=== PATIENT | female | born 1955 | race African-American/Black ===

== ENCOUNTER 2020-03-10 17:48 | Emergency (ER) | payer SELFPAY ==
[~2020-03-10] VITALS: Ht 167.6 cm; Wt 129.7 kg
--- NOTE | 2020-03-10 18:00 | NUR ---
ED Nurse Note: Pt ambulated to ED from home d/t shortness or breath and wheezing going on for couple of days. Pt is AOx4, calm and cooperative to care, breathing unlabored, VSS, satting at 94% on RA, afebrile on triage. Will continue to monitor.
--- NOTE | 2020-03-10 18:22 | Emergency Room Report ---
History of Present Illness General Chief Complaint: Dyspnea/Respdistress Source: Patient (Tali Evans) Present Illness HPI 64-year-old female with history of hypertension currently not taking medication and no other past medical history here complaining of sudden onset of 1 day of chest tightness, shortness of breath and wheezing. Reports that she believes that it might be an allergic reaction to some product she was using at home. Also patient has history of eczema reports that eczema has exacerbated since yesterday. Denies anaphylaxis, difficulty swallowing. Patient still speaks in full sentences. Denies chest pain radiation, pleuritic chest pain, abdominal pain, nausea vomiting, headache and dizziness. Has not taken medication for symptom relief. Denies tobacco smoke, drug use, alcohol intake. Reports that she gets more short of breath when walking. Reports that shortness of breath is also worse when laying down and had to sit up and lean forward. Patient appears to have elevated blood pressure, oxygenation upon arrival. Patient is not in any respiratory distress and does not use any accessory muscles. Denies unilateral generalized weakness. (Tali Evans) Allergies: Coded Allergies: PENICILLINS (Verified Allergy, Unknown, 03/10/20) COVID-19 Screening Contact w/high risk pt: No Experienced COVID-19 symptoms?: Yes COVID-19 Testing performed SPECIAL NEEDS BABYSITTER: No (Tali Evans) Patient History Past Medical History: see triage record Past Surgical History: none Pertinent Family History: none Now: No Immunizations: UTD Reviewed Nursing Documentation: PMH: Agreed; PSxH: Agreed (Tali Evans) Nursing Documentation-PMH Past Medical History: No Stated History Hx Hypertension: Yes (Tali Evans) Review of Systems All Other Systems: negative except mentioned in HPI (Tali Evans) Physical Exam Vital Signs Date Time Temp Pulse Resp B/P (MAP) Pulse Ox O2 Delivery O2 Flow Rate FiO2 03/10/20 17:52 97.5 91 20 221/107 (145) 94 Room Air Sp02 EP Interpretation: abnormal - Elevated blood pressure, O2 sat 94% General Appearance: alert, non-toxic, mild distress Head: normocephalic, atraumatic Eyes: bilateral eye normal inspection, bilateral eye PERRL ENT: hearing grossly normal, normal pharynx, no angioedema, normal voice Neck: full range of motion, supple/symm/no masses Respiratory: no rhonchi, no retraction, no accessory muscle use, wheezing - Diffuse wheezing Cardiovascular #1: regular rate, rhythm, no edema, no murmur Cardiovascular #2: 2+ carotid (R), 2+ carotid (L), 2+ radial (R), 2+ radial (L), 2+ dorsalis pedis (R), 2+ dorsalis pedis (L) Gastrointestinal: soft Musculoskeletal: back normal, no calf tenderness, Chi's Sign negative Neurologic: alert, motor strength/tone normal, oriented x3, sensory intact, responsive, speech normal Psychiatric: judgement/insight normal, memory normal, mood/affect normal, no suicidal/homicidal ideation Skin: no rash Lymphatic: no adenopathy (Tali Evans) Medical Decision Making PA Attestation All diagnosis and treatment plans were discussed and reviewed by my supervising physician Dr. Ackerman (Tali Evans) Diagnostic Impression: Primary Impression: Allergic disorder of respiratory system Additional Impression: Chronic eczema ER Course 64-year-old female with history of hypertension currently not taking medication and no other past medical history here complaining of sudden onset of 1 day of chest tightness, shortness of breath and wheezing. Reports that she believes that it might be an allergic reaction to some product she was using at home. Also patient has history of eczema reports that eczema has exacerbated since yesterday. Denies anaphylaxis, difficulty swallowing. Patient still speaks in full sentences. Denies chest pain radiation, pleuritic chest pain, abdominal pain, nausea vomiting, headache and dizziness. Has not taken medication for symptom relief. Denies tobacco smoke, drug use, alcohol intake. Reports that she gets more short of breath when walking. Reports that shortness of breath is also worse when laying down and had to sit up and lean forward. Patient appears to have elevated blood pressure, oxygenation upon arrival. Patient is not in any respiratory distress and does not use any accessory muscles. Denies unilateral generalized weakness. Ddx considered but are not limited to: MO, Angina, COPD, GERD, pneumothorax, pleural effusion, PE, asthma exacerbation, Covid pneumonia Vital signs: are WNL, pt. is afebrile H&PE are most consistent with chest pain, allergic disorder of respiratory symptoms, chronic eczema ORDERS: EKG, Chest XR, cardiac labs, CT chest no contrast, prednisone, albuterol, hydrocortisone cream, azithromycin ED INTERVENTIONS: Dexamethasone, Benadryl, 3 treatments of albuterol ipratropium nebulizer treatment Patient felt that she felt much better after breathing treatment. Also complains of pruritus after extremity crash however no anaphylaxis is seen. I signed out the patient to Dr. Ackerman at 9PM, pending second troponin results DISCHARGE: At this time pt. is stable for d/c to home. Will provide printed patient care instructions, and any necessary prescriptions. Care plan and follow up instructions have been discussed with the patient prior to discharge. Patient follow primary care provider for referral to bucket pusher and also further evaluate why she is having allergic reactions. If worsening symptoms return to the emergency room (Tali Evans) ER Course I, Dr Yenifer Ackerman, have assumed care of the patient. Initial workup, history, and physical performed by previous provider has been reviewed by myself and I have performed my own physical exam of the patient. Patient with atopy and eczema here with wheezing and subjective complaint of lip swelling after starting new "inhaler" last week. No other new meds/recent travel. Airway is intact with no stridor, drooling, or increased WOB. No oral, tongue or lip swelling noted. Patient appears to be presenting with mild to moderate allergic reaction, there is no evidence of angioedema, no oral involvement, no difficulty breathing or nausea vomiting. Patient is nontoxic and well-appearing the patient is tolerating fluids. The findings are minimal and due to nonprogression of symptoms here the patient is safe to discharge home after several hours of ED observation. The patient feels comfortable with plan and will return immediately if symptoms begin to worsen. Patient given a dose of steroids and Benadryl here in the emergency department. Patient will be discharged with an EpiPen and Benadryl. Triamcinoline for her eczema rash on her hands. Extensive epi pen usage instructions discussed. Patient was instructed to avoid all potential allergic stimuli in the future The patient was instructed to avoid potential precipitating factor and to follow up with their regular physician for referral to customer acquisition specialist for definitive allergy testing. Acute coronary syndrome is unlikely and the patient is low risk, pain is atypical, nonexertional, and troponin is negative x 2 with over 6 hrs of symptoms. The pain is not classic for pericarditis or myocarditis, and the patient has no significant risk factors for a pericardial effusion and has stable vitals signs, unlikely to have tamponade. Pain is not likely to be pulmonary embolism and no significant PE risk factors. The patient has no significant risk factors for aortic dissection, no history of connective tissue disorder, and the patients pain is not severe, radiating to the back, or tearing in nature. They have normal bilateral radial and pedal pulses. HEART score 3, which indicates low risk, so the patient can be safely discharged with the understanding that they need to make an appointment with a primary care doctor to be referred for a stress test within the next 48-72 hours, or if they cannot arrange that they are to return to the ED, or sooner than that if they have any changing, persistent, or worsening symptoms. Pertinent results reviewed with the patient. I educated the patient on the current treatment plan including the risks, benefits, and alternatives. I also discussed the extent and limitations of the current evaluation. The patient expressed understanding and agreement with plan. I recommended PMD follow-up within 1-2 days. Also advised that the patient return to the Emergency Department as soon as possible if they experience any new, persistent, or worsening symptoms. (Yenifer Ackerman D.O.) EKG Diagnostic Results Rate: normal Rhythm: NSR ST Segments: no acute changes Other Impression No acute ST changes ASA given to the pt in ED: No (Tali Evans) Chest X-Ray Diagnostic Results Chest X-Ray Diagnostic Results : Chest X-Ray Ordered: Yes Indication: Chest Pain EP Interpretation: Yes PA Xray: Interpretation reviewed, by supervising MD, and agrees with findings. Interpretation: no consolidation, no effusion, no pneumothorax Impression: No acute disease Electronically Signed by: Tali Dennis PA-C (Tali Evans) CT/MRI/US Diagnostic Results CT/MRI/US Diagnostic Results : Imaging Test Ordered: CT chest no contrast Impression COMPARISON: Same-day chest radiograph. FINDINGS: Lungs: Unremarkable lungs. Pleural space: Unremarkable. No pneumothorax. No significant effusion. Heart: Unremarkable. No cardiomegaly. No significant pericardial effusion. Bones/joints: Degenerative spine findings. No acute fracture. No dislocation. Soft tissues: Unremarkable. Vasculature: Unremarkable. No thoracic aortic aneurysm. Lymph nodes: Unremarkable. No enlarged lymph nodes. Other findings: No acute abnormality seen. IMPRESSION: 1. No acute abnormality seen. 2. Unremarkable lungs. 3. Finding on comparison chest radiograph likely represents prominent osteophyte off the inferior rib of no clinical significance. 4. Degenerative spine findings. (Tali Evans) Last Vital Signs Date Time Temp Pulse Resp B/P (MAP) Pulse Ox O2 Delivery O2 Flow Rate FiO2 03/10/20 17:52 97.5 91 20 221/107 (145) 94 Room Air (Tali Evans) Reevaluation Time: 21:45 Status: improved - resolved. (Yenifer Ackerman D.O.) Disposition: HOME, SELF-CARE Admit Decision Time: 22:10 (Yenifer Ackerman D.O.) Condition: Stable Scripts Diphenhydramine HCl (Benadryl) 25 Mg Capsule 25 MG PO Q6H for allergy for 7 Days, #28 CAP Prov: Yenifer Ackerman D.O. 03/10/20 Epinephrine (Epipen 2-Breezy) 0.3 Mg/0.3 Ml Auto.injct 0.3 MG IM ONCE for anaphylaxis for 1 Day, #1 EA Prov: Yenifer Ackerman D.O. 03/10/20 Azithromycin* (ZITHROMAX*) 250 Mg Tablet 250 MG ORAL DAILY, #6 TAB 0 Refills Take two tables once daily for 1 day, then one tablet once daily for 4 days. Prov: Tali Evans 03/10/20 Triamcinolone Acetonide (Triamcinolone Acetonide 0.5% Cream*) 15 Gm Cream..g. 2 GM TP TID, #15 GM Prov: Tali Evans 03/10/20 Albuterol Sulfate (VENTOLIN HFA) 18 Gm Hfa.aer.ad 2 PUFFS INH EVERY 6 HOURS, #18 GM 0 Refills Prov: Tali Evans 03/10/20 Prednisone* (PREDNISONE*) 20 Mg Tablet 40 MG ORAL DAILY for 5 Days, #10 TAB Prov: Tali Evans 03/10/20 Referrals: [facility],REFERRING (PCP) Patient Instructions: Eczema, Nonspecific Chest Pain, Shortness of Breath, Easy -to-Read Additional Instructions: Patient follow primary care provider for referral to bucket pusher and also further evaluate why she is having allergic reactions. If worsening symptoms return to the emergency room Tali Evans Mar 10, 2020 18:22 Yenifer Ackerman D.O. Mar 10, 2020 21:37
--- NOTE | 2020-03-10 18:25 | NUR ---
ED Nurse Note: Pt taken to CT on stable condition.
--- NOTE | 2020-03-10 18:33 | Diagnostic Imaging Report ---
EXAM: XR Chest, 1 View CLINICAL HISTORY: SOB TECHNIQUE: Frontal view of the chest. COMPARISON: No relevant prior studies available. FINDINGS: Lungs: No acute cardiopulmonary disease. Recommend unenhanced CT chest to further characterize possible medial right lower lung 1.2. Similar nodule, not well evaluated on this study. Pleural space: Unremarkable. No pneumothorax. Heart: Unremarkable. No cardiomegaly. Mediastinum: Unremarkable. Bones/joints: No acute abnormality IMPRESSION: 1. No acute cardiopulmonary disease. 2. Recommend unenhanced CT chest to further characterize possible medial right lower lung 1.2. Similar nodule, not well evaluated on this study. 3. Otherwise unremarkable study.
[2020-03-10 18:39] VITALS: BP 221/107
--- NOTE | 2020-03-10 18:39 | NUR ---
ED Nurse Note: Pt returned from CT on stable condition.
[2020-03-10 18:43] LABS: EOSINOPHILS % (AUTO) 9.9 % (0.0-3.0); HEMATOCRIT 47.2 % (37.0-47.0); HEMOGLOBIN 15.5 G/DL (12.0-16.0); LYMPHOCYTES % (AUTO) 25.8 % (20.0-45.0); MEAN CORPUSCULAR VOLUME 81 FL (80-99); MONOCYTES % (AUTO) 6.6 % (1.0-10.0); NEUTROPHILS % (AUTO) 56.7 % (45.0-75.0); PLATELET COUNT 252 K/UL (150-450); RED BLOOD COUNT 5.86 M/UL (4.20-5.40); RED CELL DISTRIBUTION WIDTH 13.9 % (11.6-14.8); WHITE BLOOD COUNT 9.5 K/UL (4.8-10.8)
[2020-03-10 19:04] LABS: ANION GAP 10 mmol/L (5-15); BLOOD UREA NITROGEN 14 mg/dL (7-18); CALCIUM 9.3 MG/DL (8.5-10.1); CARBON DIOXIDE 27 MMOL/L (21-32); CHLORIDE 103 MMOL/L (98-107); CREATININE 0.7 MG/DL (0.55-1.30); POTASSIUM 3.7 MMOL/L (3.5-5.1); SODIUM 140 MMOL/L (136-145)
--- NOTE | 2020-03-10 19:05 | Diagnostic Imaging Report ---
EXAM: CT Chest Without Intravenous Contrast CLINICAL HISTORY: SOB TECHNIQUE: Axial computed tomography images of the chest without intravenous contrast. CTDI is 12.4 mGy and DLP is 499.6 mGy-cm. One or more of the following dose reduction techniques were used: automated exposure control, adjustment of the mA and/or kV according to patient size, use of iterative reconstruction technique. COMPARISON: Same-day chest radiograph. FINDINGS: Lungs: Unremarkable lungs. Pleural space: Unremarkable. No pneumothorax. No significant effusion. Heart: Unremarkable. No cardiomegaly. No significant pericardial effusion. Bones/joints: Degenerative spine findings. No acute fracture. No dislocation. Soft tissues: Unremarkable. Vasculature: Unremarkable. No thoracic aortic aneurysm. Lymph nodes: Unremarkable. No enlarged lymph nodes. Other findings: No acute abnormality seen. IMPRESSION: 1. No acute abnormality seen. 2. Unremarkable lungs. 3. Finding on comparison chest radiograph likely represents prominent osteophyte off the inferior rib of no clinical significance. 4. Degenerative spine findings.
--- NOTE | 2020-03-10 19:12 | NUR ---
ED Nurse Note: hand off given to genia wakefield.
[2020-03-10 19:14] LABS: ALANINE AMINOTRANSFERASE 15 U/L (12-78); ALBUMIN 3.7 G/DL (3.4-5.0); ALBUMIN/GLOBULIN RATIO 0.8 (1.0-2.7); ALKALINE PHOSPHATASE 95 U/L (46-116); ASPARTATE AMINO TRANSFERASE 26 U/L (15-37); BILIRUBIN,TOTAL 0.6 MG/DL (0.2-1.0)
[2020-03-10] MEDS: Albuterol/Ipratropium 3ml neb HHN SCH ×3 (20:06→20:16)
--- NOTE | 2020-03-10 20:07 | NUR ---
ED Nurse Note: RT at bedside fpr breathing tx
[2020-03-10] MEDS ORDERED: DiphenhydrAMINE 25mg/10ml Elixir ORAL ONE (20:45)
[2020-03-10] MEDS ORDERED: PREDNISONE20 MG ORAL (20:51)
[2020-03-10] MEDS ORDERED: ZITHROMAX250 MG ORAL (20:51)
[2020-03-10] MEDS ORDERED: VENTOLIN HFA18 GM INH (20:51)
[2020-03-10] MEDS ORDERED: TRIAMCINOLONE A15 G1 TP (20:51)
[2020-03-10] MEDS ORDERED: BENADRYL25 M3 PO (21:36)
[2020-03-10] MEDS ORDERED: EPIPEN 2-P0.3 MG/0.3 IM (21:36)
[2020-03-10] MEDS ORDERED: Labetalol 5mg/ml 20ml vial IV ONE (21:45)
[2020-03-10 21:50] VITALS: BP 164/98
--- NOTE | 2020-03-10 21:50 | NUR ---
ER DISCHARGE NOTE: Patient is cleared to be discharged per ERMD, pt is aox4, on room air, with stable vital signs. pt was given dc and prescription instructions, pt was able to verbalize understanding, pt id band and iv site removed without complications. pt is able to ambulate with steady gait. pt took all belongings.
== END 2020-03-10 21:50 | disposition home or self-care (01) ==
LOC: EMR 18:15
DX: T48.6X5A Adverse effect of antiasthmatics, initial encounter (principal); J98.9 Respiratory disorder, unspecified; L30.9 Dermatitis, unspecified; I10 Essential (primary) hypertension; Z88.0 Allergy status to penicillin; X58.XXXA Exposure to other specified factors, initial encounter
CPT/HCPCS: 36415; 71045; 71250; 80053; 80307; 83880; 84484; 85025; 85610; 85730; 93005; 94640; 96374; 99284; J1100; U0002; J7620